=== PATIENT | female | born 2005 | race Hispanic/Latino ===

== ENCOUNTER 2025-01-31 02:23 | Emergency (ER) | payer SELFPAY ==
[~2025-01-31] VITALS: Ht 165.1 cm; Wt 62.1 kg
[2025-01-31] MEDS: LACTATED RINGERS 1000ML IV STA ×2 (02:58→05:01)
--- NOTE | 2025-01-31 02:58 | ERN ---
General Chief Complaint: Abdominal Pain Stated Complaint: C/O ABD PAIN N X V, HEADACHE, "NOT FEELING WELL" Time Seen by MD: 02:28 Source: patient History of Present Illness Initial Comments Healthy 20-year-old female comes in with a week of not feeling well headache abdominal pain nausea and vomiting. In addition she has had a cough and a fever. These symptoms have gotten progressively worse to the point that today she could not even drink any water without emesis. She is trying to get but she does not think she is now as she had her. Two weeks ago. No other members of her household sick. Timing/Duration: 1 week Allergies: Coded Allergies: No Known Allergies (Unverified Allergy, Unknown, 01/31/25) Past Medical History Past Medical History: Other Past Surgical History: None Female( History) LMP: Jan 16, 2025 Constitutional: (+) chills, (+) fever EENTM: (-) eye pain, (-) blurred vision, (-) tearing, (-) double vision, (-) ear pain, (-) ear discharge, (-) nose pain, (-) nose congestion, (-) throat pain, (-) Throat swelling, (-) mouth pain, (-) tooth pain, (-) mouth swelling, (-) other documentation Respiratory: (+) cough Cardiovascular: (+) chest pain Gastrointestinal/Abdominal: (+) nausea, (+) vomiting Genitourinary: (-) vaginal discharge, (-) vaginal bleeding, (-) dysuria, (-) frequency, (-) hematuria, (-) pain, (-) other documentation Musculoskeletal: (-) Neck pain, (-) back pain, (-) Flank Pain, (-) joint pain, (-) joint swelling, (-) muscle pain, (-) muscle stiffness, (-) gout, (-) other documentation Skin: (-) laceration, (-) contusion, (-) abrasion, (-) abscess, (-) rash, (-) change in color, (-) change in hair, (-) change in nails, (-) diaphoresis, (-) dryness, (-) other documentation Neuro: (+) headache Physical Exam General Appearance: (+) mild distress Orientation: (+) alert, (+) oriented x 3 Head/Face Trauma: No Eye: bilateral eye normal inspection, bilateral eye PERRL, bilateral eye EOMI Ear, Nose, Throat: (+) hearing grossly normal, (+) normal ENT inspection, (+) moist mucous membraine Neck: (+) normal inspection, (+) supple, (+) full range of motion Respiratory: (+) chest non-tender, (+) lungs clear, (+) well ventilated Heart: (+) regular, (+) no gallop Vascular: (+) no edema, (+) normal peripheral pulse, (+) no JVD Gastrointestinal: (+) soft, (+) non-tender, (+) bowel sound present Results Laboratory and Microbiology Lab and Micro Result Laboratory Tests Test 01/31/25 03:13 01/31/25 03:15 White Blood Count 10.4 K/uL (4.8-10.8) Red Blood Count 4.11 MIL/uL (4.00-5.50) Hemoglobin 12.7 g/dL (12.0-16.0) Hematocrit 37.4 % (36-48) Mean Corpuscular Volume 91.0 fL (80-100) Mean Corpuscular Hemoglobin 30.9 pg (27.0-33.0) Mean Corpuscular Hemoglobin Concent 34.0 g/dL (32.0-36.0) Red Cell Distribution Width 12.4 % (11.0-15.5) Platelet Count 302 K/uL (130-400) Mean Platelet Volume 10.6 fL (7.5-10.5) H Immature Granulocyte % (Auto) 1.0 % (0-1) Neutrophils (%) (Auto) 68.3 % (40.0-77.0) Lymphocytes (%) (Auto) 23.1 % (21.0-51.0) Monocytes (%) (Auto) 6.1 % (3.0-13.0) Eosinophils (%) (Auto) 0.8 % (0.0-8.0) Basophils (%) (Auto) 0.7 % (0.0-5.0) Neutrophils # (Auto) 7.1 K/uL (1.8-7.7) Lymphocytes # (Auto) 2.4 K/uL (1.0-4.8) Monocytes # (Auto) 0.6 K/uL (0.1-1.0) Eosinophils # (Auto) 0.08 K/uL (0.00-0.70) Basophils # (Auto) 0.07 K/uL (0.00-0.20) Absolute Immature Granulocyte (auto 0.10 K/uL (0-1) Nucleated Red Blood Cells 0.0 % (0.0-0.19) Sodium Level 138 mmol/L (136-145) Potassium Level 3.6 mmol/L (3.5-5.1) Chloride Level 102 mmol/L (101-111) Carbon Dioxide Level 29 mmol/L (21-32) Blood Urea Nitrogen 13 mg/dL (7-18) Creatinine 0.6 mg/dL (0.5-1.0) Glomerular Filtration Rate Calc 131 mL/min (>90) Random Glucose 108 mg/dL (70-105) H Total Calcium 9.0 mg/dL (8.5-10.1) Total Bilirubin 0.1 mg/dL (0.2-1.0) L Aspartate Amino Transf (AST/SGOT) 12 U/L (10-37) Alanine Aminotransferase (ALT/SGPT) 13 U/L (12-78) Alkaline Phosphatase 86 U/L (50-136) Total Protein 7.1 g/dL (6.0-8.3) Albumin 3.8 g/dL (3.5-5.0) Influenza Type A Antigen Negative For Type A Influenza Type B Antigen Negative For Type B Respiratory Syncytial Virus Rapid negative (NEGATIVE) SARS-CoV-2 Antigen (Rapid) PRESUMPTIVE NEGATIVE Group A Streptococcus Rapid negative (NEGATIVE) Urine Color LIGHT-YELLOW (YELLOW) Urine Appearance CLEAR (CLEAR) Urine pH 6.5 (5.0-8.0) Urine Specific [place] 1.026 (1.001-1.031) Urine Protein NEGATIVE mg/dL (NEGATIVE) Urine Glucose (UA) NEGATIVE mg/dL (NEGATIVE) Urine Ketones NEGATIVE mg/dL (NEGATIVE) Urine Occult Blood NEGATIVE (NEGATIVE) Urine Nitrate NEGATIVE (NEGATIVE) Urine Bilirubin NEGATIVE mg/dL (NEGATIVE) Urine Urobilinogen 0.2 mg/dL (0.2-1.0) Urine Leukocyte Esterase NEGATIVE [place]/uL Urine HCG, Qualitative NEGATIVE (NEGATIVE) MDM MDM: Differential diagnosis: Flu, upper respiratory tract infection, dehydration, DKA, gastroenteritis, early Rationale: Tests considered and ordered secondary to shared decision making include: Previous outside records reviewed: Old ER visits. Risk of complication and/or morbidity or mortality of patient management: None Medications-Per medication reconciliation Need for hospitalization: Patient does meet criteria for hospitalization. Need for emergency major/minor surgery: No There are no social concerns with this patient. Prescription drug management Prescriptions will include symptomatic care Patient's prior external medical records from other ER visits were reviewed by me as indicated. Prior testing and results from previous visits were reviewed. Prior tests were taken into account with medical decision making and resource utilization, independent historian/historians were used to obtain complete medical history. I independently interpreted the test that were performed, results were reviewed by me and considered findings on radiology if ordered. Patient's CBC is normal. Patient's chemistry panel normal. Patient's UA normal. Patient does feel much better with a L and a half a fluid. I will discharge her home ED Course Orders Procedure Category Date Status Time Cbc With Differential LAB 01/31/25 Complete 02:44 Comprehensive LAB 01/31/25 Complete Metabolic Panel 02:44 Covid19 (Sars Antigen LAB 01/31/25 Complete Rapid) 02:44 Influenza Type A & B, LAB 01/31/25 Complete Rapid 02:44 ,Urine Test LAB 01/31/25 Complete 02:44 Rapid (Group A Strep) LAB 01/31/25 Complete 02:44 RSV LAB 01/31/25 Complete 02:44 Lactated Ringers PHA 01/31/25 Complete 1000ml (Lactated 02:44 Ondansetron 4mg Inj PHA 01/31/25 Complete (Zofran 4mg Inj) 03:00 Urinalysis Profile LAB 01/31/25 Complete 03:49 Acetaminophen 500mg PHA 01/31/25 Complete Tab (Tylenol 500mg T 04:00 Lactated Ringers PHA 01/31/25 Complete 1000ml (Lactated 05:00 Lactated Ringers PHA 01/31/25 Complete 1000ml (Lactated 04:56 Current Medications Medications (Trade) Dose Ordered Sig/Danya Route PRN Reason Start Time Stop Time Status Last Admin Dose Admin Acetaminophen (TYLenol 500MG TAB) 1,000 mg ONCE ONCE PO 01/31/25 04:00 01/31/25 04:07 DC 01/31/25 04:11 Lactated Ringer's 1,000 ml @ 0 mls/hr Q0M ONCE IV 01/31/25 05:00 01/31/25 05:01 DC 01/31/25 04:57 Lactated Ringer's (Lactated Ringers 1000ml) 1,000 ml BOLUS STAT IV 01/31/25 02:44 01/31/25 02:47 DC 01/31/25 04:09 Lactated Ringer's (Lactated Ringers 1000ml) 1,000 ml BOLUS STAT IV 01/31/25 04:56 01/31/25 04:58 DC Ondansetron HCl (zoFRAN 4MG INJ) 4 mg ONCE ONCE IVP 01/31/25 03:00 01/31/25 03:01 DC 01/31/25 04:10 Vital Signs Date Time Temp Pulse Resp B/P (MAP) Pulse Ox O2 Delivery O2 Flow Rate FiO2 01/31/25 03:16 98.4 88 18 122/66 99 Room Air* 0 21 01/31/25 02:26 98.1 61 18 111/57 98 Room Air DX & DISP Disposition: Discharge Departure Impression: Primary Impression: Dehydration Condition: Stable Additional Instructions: I think you got dehydrated from the nausea and vomiting. The abdominal pain could be from the dehydration or could be from tenting the muscles when you had emesis. The cause of the nausea and vomiting could have been a stomach flu or the dehydration. In either case your feeling better with IV hydration your labs are normal. Drink plenty of fluids. Drink enough to keep your urine running clear at least once a day. Referrals: SELF,REFERRAL (PCP) ADELITA MCGUIRE MD Jan 31, 2025 02:57
[2025-01-31 03:16] VITALS: BP 122/66; PULSE 88; RESP 18; TEMP 98.5; O2SAT 99
[2025-01-31 03:20] LABS: IMMATURE GRANULOCYTE ABSOLUTE 0.10 K/uL (0-1); NUCLEATED RED BLOOD CELLS 0.0 % (0.0-0.19); PLATELET COUNT (AUTO) 302 K/uL (130-400); RED BLOOD CELL COUNT(AUTO) 4.11 MIL/uL (4.00-5.50); RED CELL DISTRIBUTION WIDTH 12.4 % (11.0-15.5); WHITE BLOOD COUNT (AUTO) 10.4 K/uL (4.8-10.8)
[2025-01-31 03:28] LABS: CREATININE 0.6 mg/dL (0.5-1.0); GLOMERULAR FILTR. RATE CALC 131.0 mL/min (>90); GLUCOSE,RANDOM 108.0 mg/dL (70-105); SODIUM SERUM 138.0 mmol/L (136-145); UREA NITROGEN, BLOOD 13.0 mg/dL (7-18)
[2025-01-31 03:33] LABS: ASPARTATE AMINOTRANSFERASE 12.0 U/L (10-37); TOTAL PROTEIN, SERUM 7.1 g/dL (6.0-8.3)
[2025-01-31 03:43] LABS: COVID19 (SARS ANTIGEN RAPID) PRESUMPTIVE NEGATIVE (NEGATIVE); INFLUENZA TYPE A Negative For Type A (NEGATIVE); INFLUENZA TYPE B Negative For Type B (NEGATIVE); RSV negative (NEGATIVE)
[2025-01-31 03:44] LABS: RAPID GROUP A STREP negative (NEGATIVE)
[2025-01-31 04:45] LABS: APPEARANCE,URINE CLEAR (CLEAR); GLUCOSE, URINE (UA) NEGATIVE (NEGATIVE); LEUKOCYTE ESTERASE ,URINE NEGATIVE Leu/uL (NEGATIVE); NITRATE,URINE NEGATIVE (NEGATIVE); OCCULT BLOOD,URINE NEGATIVE (NEGATIVE)
[2025-01-31 04:46] LABS: ADD UA MICROSCOPIC NO
[2025-01-31] MEDS: LACTATED RINGERS 1000ML 1,000 ML IV ONE (04:57)
== END 2025-01-31 05:35 | disposition home or self-care (01) ==
LOC: EDH 02:23
DX: E86.0 Dehydration (principal); R11.2 Nausea with vomiting, unspecified; R51.9 Headache, unspecified; R10.9 Unspecified abdominal pain; R05.9 Cough, unspecified; Z20.822 Contact with and (suspected) exposure to COVID-19
CPT/HCPCS: 99283; 96374; 87426; 80053; 85025; 87880; 87807; 87804 ×2; 81003; 81025; 36415; J7120 ×2; J2405 ×2